=== PATIENT | female | born 1945 | race Caucasian/White ===

== ENCOUNTER 2020-05-16 14:48 | Outpatient (CLI) | payer OTHER | END 2020-05-16 14:53 | disposition HB | LOC: RAD 14:48 | DX: I10 Essential (primary) hypertension (principal); Z98.41 Cataract extraction status, right eye; H25.011 Cortical age-related cataract, right eye ==

== ENCOUNTER 2021-01-24 10:55 | Emergency (ER) | payer OTHER ==
[~2021-01-24] VITALS: Ht 160 cm; Wt 66.2 kg
[2021-01-24] MEDS ORDERED: SYNTHROID112 MCG (11:28)
[2021-01-24] MEDS ORDERED: BACTRIM DS TAB1 EACH PO (15:43)
[2021-01-24] MEDS ORDERED: PYRIDIUM DS200 MG PO (15:43)
== END 2021-01-24 16:12 | disposition home or self-care (01) ==
LOC: ER 10:55
DX: N39.0 Urinary tract infection, site not specified (principal); B96.20 Unspecified Escherichia coli [E. coli] as the cause of diseases classified elsewhere